=== PATIENT | male | born 1980 | race Caucasian/White ===

== ENCOUNTER 2020-08-12 09:45 | Emergency (ER) | payer OTHER, SELFPAY ==
[2020-08-12] VITALS (13 sets, daily range): BP systolic 152–172; BP diastolic 104–113; PULSE 67–81; RESP 12–20; TEMP 35.9; O2SAT 94–98
[2020-08-12 09:56] LABS: Glucose Point of Care 294 (65-105)
--- NOTE | 2020-08-12 10:01 | ED.GENADULT ---
HPI - General Adult General Chief complaint: Recheck/Abnormal Lab/Rx Stated complaint: High blood sugars Time Seen by Provider: 08/12/20 09:50 Source: RN notes reviewed History of Present Illness HPI narrative: Patient presents to emergency department from home for high blood sugar. Patient states that his father and brother are diabetic he states that his father was in town and checked his blood sugar was noted to be in the 400s. States that was 2 days ago and was rechecked again yesterday and was noted to be in the 300s. Patient states he does not have a regular primary care physician and has no history of diabetes. He denies any recent illness denies any fevers or chills chest pain shortness of breath abdominal pain nausea vomiting diarrhea or any other symptoms denies increased thirst or urination Related Data Allergies Allergy/AdvReac Type Severity Reaction Status Date / Time No Known Allergies Allergy Verified 08/12/20 09:55 Review of Systems Review of Systems: Narrative: Gen.: Denies fevers or chills ENT: Denies congestion Respiratory: Denies shortness of breath or cough CV: Denies chest pain or palpitations GI: Denies abdominal pain nausea, emesis or diarrhea denies burning, urgency, frequency or hematuria Musculoskeletal: Denies back pain or muscle pain Neuro: Denies numbness, tingling, weakness or focal weakness Skin: Denies rash Endocrine: Reports hyperglycemia Except as documented, all other systems reviewed and negative [facility] Past Medical History Medical History (Updated 08/12/20 @ 11:38 by Rico Diop DO) Patient denies significant medical history Social History Social History (Updated 08/12/20 @ 10:02 by Rico Diop DO) Smoking status: Never smoker Exam Narrative: Exam Narrative: APPEARANCE: No acute distress, nontoxic, resting in bed EYES: EOMI HEENT: Normocephalic, atraumatic, OMM RESPIRATORY: No respiratory distress Clear to auscultation bilaterally with no rhonchi wheezing or rales. CARDIOVASCULAR: Regular rate and rhythm without murmurs rubs or gallops. ABDOMINAL: Soft, nontender, nondistended, no rebound or guarding MUSCULOSKELETAl: Moves all extremities. No clubbing, cyanosis or edema. NEURO: Awake and alert. Following commands, speech normal, no focal deficits SKIN:: Warm, dry. No rashes lesions or abrasions PSYCHIATRIC: Normal affect/mood, Course Course Emergency Course: Called and discussed with Dr. Kwan primary care physician superintendent stations presentation work-up. This time requested patient be started on Metformin 1000 mg twice daily and patient follow-up in the office Discussed with patient results of workup and diagnosis. Discussed need for follow-up with primary care, proper use of medication, and reasons to return to the emergency department. Patient understands and agrees to current treatment plan Vital Signs Vital signs: Vital Signs Temperature 96.7 F L 08/12/20 09:52 Pulse Rate 81 08/12/20 09:52 Respiratory Rate 16 08/12/20 09:52 Blood Pressure 171/111 H 08/12/20 09:52 Pulse Oximetry 98 08/12/20 09:52 Temperature 96.7 F L 08/12/20 09:52 Pulse Rate 73 08/12/20 10:16 Respiratory Rate 16 08/12/20 10:16 Blood Pressure 172/113 H 08/12/20 10:16 Pulse Oximetry 94 08/12/20 10:16 Medical Decision Making Vital Signs Vital Signs: Vital Signs Temperature 96.7 F L 08/12/20 09:52 Pulse Rate 81 08/12/20 09:52 Respiratory Rate 16 08/12/20 09:52 Blood Pressure 171/111 H 08/12/20 09:52 Pulse Oximetry 98 08/12/20 09:52 Temperature 96.7 F L 08/12/20 09:52 Pulse Rate 73 08/12/20 10:16 Respiratory Rate 16 08/12/20 10:16 Blood Pressure 172/113 H 08/12/20 10:16 Pulse Oximetry 94 08/12/20 10:16 Lab Data Result diagrams: 08/12/20 10:25 08/12/20 10:25 Labs: Lab Results 08/12/20 08/12/20 08/12/20 Range/Units 09:54 10:25 10:25 WBC 5.8 (4.5-10.0) K/mm3 RBC 5.31 (4.6
[2020-08-12] MEDS: SODIUM CHLORIDE 0.9% IV 1,000 ML 999 ML IV CONT (10:09)
[2020-08-12 10:39] LABS: Basophils Absolute Auto 0.1 K/mm3 (0.0-0.1); Basophils Percent Auto 1.7 % (0.2-1.2); Eosinophils Absolute Auto 0.1 K/mm3 (0-0.3); Eosinophils Percent Auto 2.1 % (0-4.4); Hematocrit 45.8 % (42.0-52.0); Hemoglobin 15.5 g/dL (14.0-18.0); Immature Granulocyte Absolute 0.09 K/mm3 (0.00-0.031); Immature Granulocyte Percent A 1.5 % (0-0.5); Lymphocytes Absolute Auto 2.52 K/mm3 (0.9-3.2); Lymphocytes Percent Auto 43.2 % (18.3-44.2); Mean Corpuscular HGB Conc 33.8 g/dl (32-36); Mean Corpuscular Hemoglobin 29.2 pg (26-34); Mean Corpuscular Volume 86.3 fl (80-100); Mean Platelet Volume 11.5 fl (7.4-10.4); Monocytes Absolute Auto 0.5 K/mm3 (0.1-0.6); Monocytes Percent Auto 7.9 % (2.6-8.5); Neutrophils Absolute Auto 2.6 K/mm3 (1.3-6.7); Neutrophils Percent Auto 43.6 % (45.5-73.1); Platelet Count Result 205 k/mm3 (150-375); Red Blood Count 5.31 M/mm3 (4.6-6.20); Red Cell Distribution Width 11.9 % (11.5-14.5); White Blood Count 5.8 K/mm3 (4.5-10.0)
[2020-08-12 10:50] LABS: Alanine Aminotransferase 73 U/L (4-50); Albumin Level 4.5 g/dL (3.5-5.1); Alkaline Phosphatase 83 U/L (38-126); Anion Gap 11 mmol/L (8-16); Aspartate Amino Transferase 46 U/L (17-59); Bilirubin,Total 0.6 mg/dL (0.2-1.3); Blood Urea Nitrogen 15 mg/dL (9-20); Calcium 9.2 mg/dL (8.4-10.2); Carbon Dioxide 25 mmol/L (22-30); Chloride 98 mmol/L (98-107); Estimated CRCL calculation 138 ml/min; Estimated Glomerular Filt Rate > 60; Glucose 287 mg/dL (75-110); Potassium 4.4 mmol/L (3.4-5.0); Sodium 134 mmol/L (137-145)
[2020-08-12 10:53] LABS: Beta-Hydroxybutyrate/Acetoacetate 0.53 mmol/L (0.02-0.27)
[2020-08-12 10:59] LABS: Add Urine Microscopic? YES; Appearance Urine Clear (Clear); Bilirubin Urine Negative (Negative); Blood Urine Negative (Negative); Color Urine Straw (Yellow); Glucose Urine UA 3+ mg/dL (Negative); Ketones Urine Trace mg/dL (Negative); Leukocyte Esterase Ur Negative LEU/UL (Negative); Nitrate Urine Negative (Negative); Protein Urine Negative (Negative); Specific Grav Ur 1.012 (1.001-1.035); Urobilinogen Urine Negative mg/dL (<2.0)
[2020-08-12] MEDS: metFORMIN HCL 500 MG TABLET 1000 MG PO (11:25)
== END 2020-08-12 11:56 | disposition home or self-care (01) ==
PROVIDERS: Emergency Provider Emergency Medicine
DX: R73.9 Hyperglycemia, unspecified (principal); R10.9 Unspecified abdominal pain
CPT/HCPCS: 36415; 80053; 81001; 82010; 82948; 85025; 96360; 99283; A9270; J7030